=== PATIENT | female | born 1985 | race Caucasian/White ===

== ENCOUNTER 2017-01-20 22:51 | Emergency (ER) | payer OTHER ==
[2017-01-20 23:09] VITALS: BP 107/67
[2017-01-20] MEDS ORDERED: oxyCODONE/Acetamin 5/325 MG* TAB PO ONE (23:29)
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
[2017-01-21] MEDS ORDERED: oxyCODONE/Acetamin 5/325 MG* TAB PO ONE (00:48)
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
== END 2017-01-21 01:07 | disposition home or self-care (01) ==
LOC: ED 22:51
DX: S82.61XA Displaced fracture of lateral malleolus of right fibula, initial encounter for closed fracture (principal); W19.XXXA Unspecified fall, initial encounter; Y93.9 Activity, unspecified; Y92.9 Unspecified place or not applicable
CPT/HCPCS: 99282; A9270-GY

== ENCOUNTER 2017-03-08 10:23 | Day surgery (SDC) | payer OTHER ==
[~2017-03-08 10:23] MED LIST: Buffered Lidocaine 0.9% SYRIN* 5 ML/SYR SYRINGE INTRADERM ONE; Dexamethasone IV* 4 MG/ML 1 ML (4 MG) IV SLOW PU ONE; Famotidine IV* 10 MG/ML 2 ML (20 mg) IV ONE
[2017-03-08] MEDS ORDERED: Dexamethasone IV* 4 MG/ML 1 ML (4 MG) ONE (10:42)
[2017-03-08] MEDS ORDERED: Famotidine IV* 10 MG/ML 2 ML (20 mg) ONE (10:42)
[2017-03-08] MEDS ORDERED: Buffered Lidocaine 0.9% SYRIN* 5 ML/SYR SYRINGE ONE (10:42)
[2017-03-08] MEDS ORDERED: ceFAZolin 2 GM PREMIX (*) 2 GM/50 ML BAG IVPB ONE (11:02)
[2017-03-08] MEDS ORDERED: fentaNYL* 50 MCG/ML 5 ML VIAL (250 MCG VIAL) ONE (11:13)
[2017-03-08] MEDS ORDERED: Atracurium* 10 MG/ML 10 ML VIAL ONE (11:13)
[2017-03-08] MEDS ORDERED: Midazolam* 1 MG/ML 5 ML VIAL (5 MG) ONE (11:13)
[2017-03-08] MEDS ORDERED: Ondansetron INJ* 2 MG/ML VIAL ONE ×2 (11:14→15:55)
[2017-03-08] MEDS ORDERED: ROPIVACAINE 5 MG/ML 30 ML BTL (0.5%) ONE (11:14)
[2017-03-08] MEDS ORDERED: Ketorolac INJ* 30 MG/ML 1 ML VIAL ONE (11:14)
[2017-03-08] MEDS ORDERED: Propofol* 10 MG/ML 20 ML BTL IV PUSH ONE (11:14)
[2017-03-08] MEDS ORDERED: Bupivacaine 0.5% SDV PF* 30 ML VIAL ONE (13:09)
[2017-03-08] MEDS ORDERED: Scopolamine 1.5 mg* PATCH TRANSDERM PRN (14:21)
[2017-03-08] MEDS ORDERED: fentaNYL* 50 MCG/ML 2 ML VIAL (100 MCG VIAL) IV PRN (14:21)
[2017-03-08] MEDS ORDERED: oxyCODONE/Acetamin 5/325 MG* TAB PO PRN (14:21)
[2017-03-08] MEDS ORDERED: DiMENhydriNATE IV* 50 MG/ML VIAL IV PUSH PRN (14:21)
[2017-03-08] MEDS ORDERED: Ondansetron INJ* 2 MG/ML VIAL IV PRN (14:21)
[2017-03-08] MEDS ORDERED: HYDROmorphone INJ* 1 MG/ML CARPUJECT SYRINGE ONE (15:49)
[2017-03-08] MEDS: HYDROmorphone INJ* 1 MG/ML CARPUJECT SYRINGE IV PRN ×5 (15:52→16:36)
[2017-03-08] MEDS ORDERED: Scopolamine 1.5 mg* PATCH ONE (15:56)
[2017-03-08] MEDS ORDERED: DiMENhydriNATE IV* 50 MG/ML VIAL ONE (15:56)
[2017-03-08 16:37] VITALS: BP 123/70
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
[2017-03-11] MEDS ORDERED: Scopolamine PATCH Remove* 1 NOTE MISC PATCH OFF ONE (14:22)
--- NOTE | 2017-03-16 11:38 | RAD ---
INDICATION: Right foot, right foot injury and pain COMPARISONS: MRI dated March 01, 2017 TECHNIQUE: Fluoroscopy was provided for a surgical procedure. Total fluoroscopy time is: 2 minutes, 33 seconds FINDINGS: Spot images demonstrate internal fixation of the medial midfoot IMPRESSION: FLUOROSCOPY WAS PROVIDED FOR A SURGICAL PROCEDURE CPT II Codes: 6045F
== END 2017-03-08 16:57 | disposition home or self-care (01) ==
LOC: OR 10:23
PROVIDERS: ATTEND Orthopaedic Surgery
DX: S93.324A Dislocation of tarsometatarsal joint of right foot, initial encounter (principal); M25.374 Other instability, right foot; W03.XXXA Other fall on same level due to collision with another person, initial encounter; Y92.9 Unspecified place or not applicable; F17.210 Nicotine dependence, cigarettes, uncomplicated; E03.9 Hypothyroidism, unspecified
CPT/HCPCS: 76000; A9270-GY; C1713; C1776; J0690; J1100; J1170; J1240; J1885; J2250; J2405; J2704; J2795; J3010

== ENCOUNTER 2017-07-26 06:44 | Day surgery (SDC) | payer OTHER ==
[2017-07-26] MEDS ORDERED: Dexamethasone IV* 4 MG/ML 1 ML (4 MG) ONE (07:04)
[2017-07-26] MEDS ORDERED: Famotidine IV* 10 MG/ML 2 ML (20 mg) ONE (07:04)
[2017-07-26] MEDS ORDERED: Buffered Lidocaine 0.9% SYRIN* 5 ML/SYR SYRINGE ONE (07:05)
[2017-07-26] MEDS ORDERED: ceFAZolin 2 GM PREMIX (*) 2 GM/50 ML BAG IVPB ONE (07:05)
[2017-07-26] MEDS ORDERED: fentaNYL* 50 MCG/ML 2 ML VIAL (100 MCG VIAL) IV PRN (08:47)
[2017-07-26] MEDS ORDERED: HYDROcodone/ACETAMIN 5-325 MG* 1 TAB PO PRN (08:47)
[2017-07-26] MEDS ORDERED: PROCHLORPERAZINE INJ 5 MG/ML 2 ML VIAL IV PRN (08:47)
[2017-07-26] MEDS ORDERED: oxyCODONE/Acetamin 5/325 MG* TAB PO PRN (08:47)
[2017-07-26] MEDS ORDERED: Naloxone* 0.4 MG/ML 1 ML VIAL IV PRN (08:47)
[2017-07-26] MEDS ORDERED: Scopolamine 1.5 mg* PATCH ONE (08:54)
[2017-07-26] MEDS ORDERED: Midazolam* 1 MG/ML 2 ML VIAL (2 MG) ONE (08:55)
[2017-07-26] MEDS ORDERED: Propofol* 10 MG/ML 20 ML BTL IV PUSH ONE (08:55)
[2017-07-26] MEDS ORDERED: KETAMINE HCL* 50 MG/ML 10 ML VIAL ONE (08:55)
[2017-07-26] MEDS ORDERED: fentaNYL* 50 MCG/ML 2 ML VIAL (100 MCG VIAL) ONE ×2 (08:55→10:16)
[2017-07-26] MEDS ORDERED: Lidocaine 2% PF * 5 ML VIAL ONE (08:55)
[2017-07-26] MEDS ORDERED: Scopolamine PATCH Remove* 1 NOTE MISC PATCH OFF SCH (09:00)
[2017-07-26] MEDS ORDERED: Scopolamine 1.5 mg* PATCH TRANSDERM SCH (09:00)
[2017-07-26] MEDS ORDERED: Ketorolac INJ* 30 MG/ML 1 ML VIAL ONE (09:12)
[2017-07-26] MEDS ORDERED: Ondansetron INJ* 2 MG/ML VIAL ONE (09:36)
--- NOTE | 2017-07-26 10:19 | OP ---
Operative Report - Blank - Operative Report Date of Operation: 07/26/17 Note: PATIENT: Maribel Zendejas DATE OF : 83 DATE OF SURGERY: 07/26/17 SURGEON: Darwin Rodas MD INSPECTOR RETURNED MATERIALS: MYA Cadena, who's assistance was necessary for positioning, retraction, help with instrumentation, and closure. ANESTHESIOLOGIST: Juan Alberto Sanders MD PREOPERATIVE DIAGNOSIS: Right foot painful retained hardware POSTOPERATIVE DIAGNOSIS: Right foot painful retained hardware OPERATION: 1. Right foot, removal of implants, deep. 2. Stress fluoroscopy performed by surgeon under anesthesia. ANESTHESIA: GETA IMPLANTS: Synthes mini-frag plate and screws and 4.0 mm cannulated screws removed. TOURNIQUET TIME: Less than 1 hour with an ankle Esmarch tourniquet SPECIMENS: none ESTIMATED BLOOD LOSS: minimal COMPLICATIONS: none STATUS: Stable from the operating room to the recovery room and then home. INDICATIONS FOR PROCEDURE: Maribel previously underwent a right Lisfranc ORIF. Both operative and non operative treatment alternatives were reviewed. Further, the nature and risks of surgery were reviewed in careful detail, in the office as well as the pre- operative holding area. Our discussions regarding the risks of surgery included , but were not limited to, infection, wound problems, nerve injury, neuroma, RSD , persistent symptoms, blood clot, need for further surgery, post-traumatic arthritis, failure of the surgery, and even the remote chance of catastrophic complication, including loss of limb. DESCRIPTION OF PROCEDURE: The patient was seen in the preoperative holding unit and informed written consent was obtained. The appropriate extremity was marked. The patient was then brought to the operating room and carefully positioned on the operating room table. Anesthesia was induced. All bony prominences were padded with great care. A chlorhexidine based pre-scrub was performed followed by a chloraprep prep and drape in standard sterile fashion. A surgical safety pause was then conducted in which we confirmed the appropriate patient, extremity, planned procedure, availability of equipment, indication and administration of prophylactic antibiotics, and DVT prophylaxis in the form of a compression boot on the non-surgical extremity. We began by placing an ankle Esmarch tourniquet. I utilized the prior dorsal foot incision to access the medial column hardware. I used blunt dissection to expose the hardware and took great care not to disturb the neurovascular bundle. The hardware was exposed and a screw moving van driver was used to remove the screws. A freer was used to loosen the plate which was then removed. A rongeur was used to smooth out the bone. I then turned my attention to the percutaneous screw. I utilized a small K wire to cannulate the cannulated screw. I dissected down to expose the hardware. We removed the screw utilizing a screwdriver without difficulty. I then performed an external rotation and abduction stress fluoroscopic examination. No instability was appreciated at the Lisfranc articulation. A fluoroscopic image was obtained demonstrating removal of hardware. At this point, we irrigated copiously and then closed in layers meticulously utilizing 3-0 Monocryl and 3-0 nylon for the skin. A sterile dressing was then applied. The patient was then awakened from anesthesia and transferred to the recovery room in stable condition. There were no complications. All needle and sponge counts were correct at the end of the case. ATTESTATION: I attest I was present and scrubbed and performed the critical portions of the procedure myself. POSTOPERATIVE PLAN: The plan is to remove the sutures in 2 weeks.
[2017-07-26] MEDS ORDERED: oxyCODONE TAB* 5 MG TAB ONE (10:43)
[2017-07-26 11:09] VITALS: BP 112/75
--- NOTE | 2017-07-27 07:11 | RAD ---
INDICATION: Right foot removal of hardware. COMPARISON: Comparison is made with prior x-ray study of the right foot from June 19, 2017. TECHNIQUE: 15 seconds of intermittent fluoroscopic guidance were provided and 3 spot films of the right foot were obtained in the operating room. FINDINGS: The films demonstrate interval removal of the metallic plate and surgical screws in the medial midfoot. IMPRESSION: INTRAOPERATIVE CONTROL FILMS. CPT II Codes: 6045F
== END 2017-07-26 11:10 | disposition home or self-care (01) ==
LOC: OR 06:44
PROVIDERS: ATTEND Orthopaedic Surgery
DX: T84.84XA Pain due to internal orthopedic prosthetic devices, implants and grafts, initial encounter (principal); S93.324D Dislocation of tarsometatarsal joint of right foot, subsequent encounter; S93.601D Unspecified sprain of right foot, subsequent encounter; S93.431D Sprain of tibiofibular ligament of right ankle, subsequent encounter; X58.XXXD Exposure to other specified factors, subsequent encounter; E03.9 Hypothyroidism, unspecified; F17.210 Nicotine dependence, cigarettes, uncomplicated
CPT/HCPCS: 76000; 88300; A9270-GY; C1776; J0690; J1100; J1885; J2250; J2405; J2704; J3010

== ENCOUNTER 2017-08-03 07:03 | Emergency (ER) | payer OTHER ==
--- NOTE | 2017-08-03 07:19 | UC ---
Respiratory Complaint HPI - HPI Summary HPI Summary: 32 yo female is about 8 days s/p surgery on right foot (removal of hardware). Hasn't been out of bed except much until today past few days has had a cough associated with dyspnea and profuse diarphoresis with minimal activity. possible low grade temp. No CP - History of Current Complaint Chief Complaint: UCRespiratory Stated Complaint: COUGH Time Seen by Provider: 08/03/17 07:18 Hx Last Menstrual Period: 07/13/17 Onset/Duration: Gradual Onset, Lasting Days Timing: Constant Severity Initially: Mild Severity Currently: Moderate Pain Intensity: 0 Pain Scale Used: 0-10 Numeric Character: Cough: Productive - scant sputum Aggravating Factors: Nothing Alleviating Factors: Nothing Associated Signs And Symptoms: Positive: Dyspnea - Risk Factors Pulmonary Embolism Risk Factors: Recent Bedrest, Recent Surgery - Allergies/Home Medications Allergies/Adverse Reactions: Allergies Allergy/AdvReac Type Severity Reaction Status Date / Time codeine Allergy Itching Verified 08/03/17 07:09 PMH/Surg Hx/FS Hx/Imm Hx Previously Healthy: Yes - Surgical History Surgical History: Yes Surgery Procedure, Year, and Place: c section x 2 - [place] 2005; [place] 2009. cholecystectomy 2001 [place]. gall bladder duct stent removed 2007- [facility]. TUBAL LIGATION,OVARY AND FALLOPIAN TUBE REMOVED 2015 [place]. right foot [place] - [place] [facility] [place] Right ankle hardware removal 2018 - Family History Known Family History: Positive: Hypertension, Other - mother FMH ear infections as adult - Social History Alcohol Use: Occasionally Substance Use Type: None Smoking Status (MU): Light Every Day Tobacco Smoker Type: Cigarettes Amount Used/How Often: 1/2 ppd for 10 yrs Length of Time of Smoking/Using Tobacco: on/off 12 yrs Have You Smoked in the Last Year: Yes When Did the Patient Quit Smoking/Using Tobacco: Mar 2013 - Immunization History Most Recent Influenza Vaccination: 2012 Review of Systems Constitutional: Negative Skin: Negative Eyes: Negative ENT: Negative Respiratory: Shortness Of Breath, Cough Cardiovascular: Negative Gastrointestinal: Negative Genitourinary: Negative Motor: Negative Neurovascular: Negative Musculoskeletal: Other: - varicosities left LE no calf pain or swelling Neurological: Negative Psychological: Negative Is Patient Immunocompromised?: No All Other Systems Reviewed And Are Negative: Yes Physical Exam Triage Information Reviewed: Yes Appearance: Well-Appearing, No Pain Distress, Well-Nourished Vital Signs: Initial Vital Signs Temp 98.3 F 08/03/17 07:07 Pulse 89 08/03/17 07:07 Resp 17 08/03/17 07:07 BP 117/67 08/03/17 07:07 Pulse Ox 99 08/03/17 07:07 Vital Signs Reviewed: Yes Eyes: Positive: Conjunctiva Clear ENT: Positive: Hearing grossly normal. Negative: Nasal congestion, Nasal drainage, Dental tenderness, Sinus tenderness Neck: Positive: Supple, Nontender, No Lymphadenopathy Respiratory: Positive: Lungs clear, Normal breath sounds, No respiratory distress, No accessory muscle use Cardiovascular: Positive: RRR, No Murmur Musculoskeletal: Positive: No Edema, Other: - right foot in anabel wrap and post op shoe Neurological Exam: Normal Psychological Exam: Normal Skin Exam: Normal UC Diagnostic Evaluation - Laboratory O2 Sat by Pulse Oximetry: 99 - normal/not hypoxic - Radiology Xray Interpretation: Positive (See Comments) - 1. NO PULMONARY ARTERIAL FILLING DEFECT TO SUGGEST PULMONARY EMBOLISM. Radiology Interpretation Completed By: Radiologist Re-Evaluation - Re-Evaluation First Eval Re-Evaluation Time: 10:08 Change: Improved - subjectively improved Respiratory Course/Dx - Differential Dx/Diagnosis Provider Diagnoses: pneumonia Discharge - Sign-Out/Discharge Documenting (check all that apply): Discharge - Discharge Plan Condition: Stable Disposition: HOME Prescriptions: Amoxicillin/Clavulanate TAB* [Augmentin TAB 875*] 875 mg PO BID #14 tab Fluconazole 150 MG (NF) [Diflucan 150 mg (NF)] 150 mg PO ONCE #1 tab Patient Education Materials: Pneumonia (ED) Referrals: Rohini Perez PA [Primary Care Provider] - 5 Days Additional Instructions: recheck for new or worsening symptoms use inhaler as directed robitussin or mucinex - Billing Disposition and Condition Condition: STABLE Disposition: HOME
[2017-08-03] MEDS ORDERED: Iohexol 350* (CONTRAST) 500 ML MDV IV ONE (08:38)
--- NOTE | 2017-08-03 09:15 | RAD ---
HISTORY: Shortness of breath, status post surgery COMPARISONS: None TECHNIQUE: Multiple contiguous axial CT scans of the chest were obtained after the administration of nonionic intravenous contrast, timed to the pulmonary arterial phase of contrast enhancement.. Coronal and sagittal multiplanar reformations are also submitted for review. FINDINGS: NECK AND THYROID: The lower neck and thyroid are unremarkable. CHEST WALL: There is no lower cervical, axillary, or supraclavicular lymphadenopathy by size criteria. HEART AND PERICARDIUM: The heart is unremarkable. AORTA AND PULMONARY VASCULATURE: There is no pulmonary arterial filling defect to suggest pulmonary embolism. There is no linear filling defect within the aorta to suggest aortic dissection. MEDIASTINUM: There is no mediastinal lymphadenopathy by size criteria. ELIZABETH: There is no hilar lymphadenopathy by size criteria. AIRWAY AND ESOPHAGUS: The airway is unremarkable, without endobronchial filling defect. The esophagus is grossly normal. LUNG PARENCHYMA: There is patchy groundglass opacification of the left lower lobe. PLEURA: No pleural abnormalities are noted. UPPER ABDOMEN: The upper abdomen is unremarkable. BONES AND SOFT TISSUES: No bone or soft tissue abnormalities are noted. OTHER: None. IMPRESSION: 1. NO PULMONARY ARTERIAL FILLING DEFECT TO SUGGEST PULMONARY EMBOLISM. 2. THERE IS MINIMAL AIRSPACE DISEASE OF THE LEFT LOWER LOBE.
[2017-08-03] MEDS ORDERED: Albuterol 2.5 MG/3 ML NEB.SOL* (0.083%) INH ONE (09:38)
[2017-08-03] MEDS ORDERED: Amoxicillin/Clavulanate TAB* 875 MG PO ONE (09:38)
[2017-08-03] MEDS ORDERED: Ipratropium 0.5MG/2.5ML NEB* 0.5 MG/2.5 ML NEB.SOLN INH ONE (09:38)
[2017-08-03] MEDS ORDERED: Albuterol HFA INHALER* 8 gm MDI INH ONE (10:07)
[2017-08-03 10:29] VITALS: BP 135/63
== END 2017-08-03 10:36 | disposition home or self-care (01) ==
LOC: UCCORT 07:03
DX: J18.9 Pneumonia, unspecified organism (principal); Z98.890 Other specified postprocedural states; F17.210 Nicotine dependence, cigarettes, uncomplicated; Z88.5 Allergy status to narcotic agent
CPT/HCPCS: 71275; 99213; A9270-GY; G0463; Q9967

== ENCOUNTER 2019-01-18 07:20 | Emergency (ER) | payer OTHER ==
--- OUTSIDE RECORDS SUMMARY | 2019-01-18 07:26 | XMS REPORT | Continuity of Care Document ---
:1985 External Reference #:[id number] Author Name MYA Estes (transmitted by agent of provider Braeden Vincent) Address [address] [place] [id number] Care Team Providers Name Role Phone Luis Manuel Vigil MD - Internal Care Team Information Director Of Agronomy [phone] Medicine Chance Bean MD - Otolaryngology Care Team Information Director Of Agronomy Errol Koroma MD, PhD - Care Team Information Director Of Agronomy [phone] Neurology Darci Lawrence MD - Orthopaedic Care Team Information Director Of Agronomy Surgery Darwin Rodas MD - Orthopaedic Care Team Information Director Of Agronomy Surgery Vascular, Cardiac & Thoracic Surgeons Care Team Information Director Of Agronomy [phone] Problems Active Problems Provider Date Obesity Onset: 04/08/2018 Otalgia Onset: 04/08/2018 Varicose veins of lower extremity Onset: 04/08/2018 Tobacco user Onset: 04/08/2018 Dizziness and giddiness Onset: 04/08/2018 Closed fracture dislocation of tarsometatarsal joint Onset: 04/08/2018 Hypothyroidism Onset: 04/08/2018 Acute lymphadenitis Onset: 04/08/2018 Multiple joint pain Onset: 05/30/2013 Gynecologic examination Onset: 05/30/2013 Needs influenza immunization Onset: 05/30/2013 Herpes simplex MYA Estes Onset: 09/03/2018 Social History Type Date Description Comments Sex Unknown ETOH Use Occasionally consumes alcohol Tobacco Use Start: Unknown Light tobacco smoker (10 or fewer cigarettes/day) Recreational Drug Use Never Used Drugs Tobacco Use Start: Unknown smoke free for 30 days Tobacco Use Start: Unknown pt has quit smoking for 2 months Smoking Status Reviewed: 12/24/18 pt has quit smoking for 2 months Exercise Type/Frequency Exercises sporadically Allergies, Adverse Reactions, Alerts Active Allergies Reaction Severity Comments Date Codeine 05/10/2018 Medications Active Medications SIG Qnty Indications Ordering Date Provider Famciclovir 3 tablets at once 6tabs B00.89 [place] 09/03/2018 500mg Tablets at onset of cold MD Rosa sores Phentermine HCL one daily before 30caps E66.9 [place] 09/08/2016 37.5mg breakfast as MD Rosa Capsules directed Levothyroxine Sodium Take One Tablet 90tabs E03.9 [place] 07/15/2015 By Mouth Every MD Rosa 25mcg Tablets Day History Medications Nitrofurantoin Monohyd 1 by mouth 20caps R30.0 Israel Lee 2018 - Macro twice a day 10/02/2018 100mg Capsules Fluconazole 1 by mouth 2tabs N76.0 Israel Lee 09/20/2018 - 150mg Tablets every day 10/02/2018 Azithromycin 2 pills on 6tabs J01.90 Israel Lee 07/31/2018 - 250mg day one and 09/03/2018 Tablets then one pill daily Immunizations CPT Code Status Date Vaccine Lot # [id number] Given 05/27/2013 Influenza Virus 3Yrs & Over 24246 Given 03/06/2012 Influenza Virus 3Yrs & Over 24234 Given 06/14/1999 Tetanus Toxoid Adsorbed, For Intramuscular Use 05558 Given 12/20/1985 Poliovirus Vaccine OPV Live Oral Use 89153 Given 12/20/1985 DTP Vaccine 50436 Given 09/13/1985 Measles Mumps And Rubella MMR 28052 Given 1984 DTP Vaccine 97853 Given 1984 Poliovirus Vaccine OPV Live Oral Use 42275 Given 1984 DTP Vaccine 68454 Given 1984 Poliovirus Vaccine OPV Live Oral Use 99405 Given 1984 DTP Vaccine Vital Signs Date Vital Result Comment 12/24/2018 4:20pm Weight 213.25 lb BP Systolic Sitting 110 mmHg BP Diastolic Sitting 50 mmHg 11/28/2018 4:13pm Weight 214.56 lb BP Systolic Sitting 112 mmHg BP Diastolic Sitting 60 mmHg Results Test Date Facility Test Result H/L Range Note Ua Routine 09/20/2018 [facility] In House Ua Specific [place] 1.005 Ua PH 6.0 Ua Color yellow Ua Appera cloudy Ua WBC 3+ Ua Protein neg Ua Glucose neg Ua Ketones pos Ua Bilirubin neg Ua Urobilinogen neg Ua Nitrite pos Ua Occult Blood neg Procedures Description No Information Available Medical Devices Description No Information Available Encounters Type Date Location Provider Dx Diagnosis Office Visit 11/28/2018 4:00p [facility] MYA Estes E66.8 Other obesity Office Visit 10/29/2018 4:00p [facility] MYA Estes E66.8 Other obesity N93.8 Other specified abnormal uterine and vaginal bleeding Office Visit 10/02/2018 3:30p [facility] Primary MYA Estes J06.9 Acute upper Care respiratory infection, unspecified E66.8 Other obesity Office Visit 09/20/2018 10:00a [facility] MYA Estes R30.0 Dysuria N76.0 Acute vaginitis Office Visit 09/03/2018 4:15p [facility] MYA Estes E66.8 Other obesity Z72.0 Tobacco use J06.9 Acute upper respiratory infection, unspecified B00.89 Other herpesviral infection Office Visit 07/31/2018 4:30p [facility] Primary MYA Estes J06.9 Acute upper Care respiratory infection, unspecified J01.90 Acute sinusitis, unspecified E66.8 Other obesity Assessments Date Code Description Provider 12/24/2018 E66.8 Other obesity MYA Estes 11/28/2018 E66.8 Other obesity MYA Estes 10/29/2018 E66.8 Other obesity MYA Estes 10/29/2018 N93.8 Other specified abnormal uterine and vaginal bleeding MYA Estes 10/02/2018 J06.9 Acute upper respiratory infection, unspecified MYA Estes 10/02/2018 E66.8 Other obesity MYA Estes 09/20/2018 R30.0 Dysuria MYA Estes 09/20/2018 N76.0 Acute vaginitis MYA Estes 09/03/2018 E66.8 Other obesity MYA Estes 09/03/2018 Z72.0 Tobacco use MYA Estes 09/03/2018 J06.9 Acute upper respiratory infection, unspecified MYA Estes 09/03/2018 B00.89 Other herpesviral infection MYA Estes 07/31/2018 J06.9 Acute upper respiratory infection, unspecified MAY Estes 07/31/2018 J01.90 Acute sinusitis, unspecified MYA Estes 07/31/2018 E66.8 Other obesity MYA Estes Plan of Treatment Future Appointment(s):01/27/2019 4:15 pm - MYA Estes at [facility] - ARIELLE Estes66.8 Other obesity Functional Status Functional Condition Comment Date Status Soft Contacts Active Mental Status Description No Information Available Referrals Description No Information Available
[2019-01-18 07:32] VITALS: BP 134/66
--- NOTE | 2019-01-18 08:08 | UC ---
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 Pt states it is a dry cough and yesterday was short of breath upon exertion. " -had sick contacts at that time. -no fevers/chills -no ST/ear pain. + wheezing. no asthma. no Fhx asthma except from dtr (comes from husbands side) - History of Current Complaint Chief Complaint: UCGeneralIllness Stated Complaint: COUGH Time Seen by Provider: 01/18/19 07:35 Hx Last Menstrual Period: 12/23/18 Pain Intensity: 0 - Allergies/Home Medications Allergies/Adverse Reactions: Allergies Allergy/AdvReac Type Severity Reaction Status Date / Time codeine Allergy Itching Verified 01/18/19 07:32 PMH/Surg Hx/FS Hx/Imm Hx Previously Healthy: Yes Endocrine History: Thyroid Disease - Surgical History Surgical History: Yes Surgery Procedure, Year, and Place: c section x 2 - [place] 2005; [place] 2009. cholecystectomy 2001 [place]. gall bladder duct stent removed 2007- [facility]. TUBAL LIGATION,OVARY AND FALLOPIAN TUBE REMOVED 2015 [place]. right foot orif - 2016 [facility] [place]. Right ankle hardware removal 2017 - Family History Known Family History: Positive: Hypertension, Other - mother FMH ear infections as adult Negative: Respiratory Disease - no asthma - Social History Alcohol Use: Occasionally Substance Use Type: None Smoking Status (MU): Light Every Day Tobacco Smoker Type: Cigarettes Amount Used/How Often: 1/2 ppd for 10 yrs Length of Time of Smoking/Using Tobacco: on/off 12 yrs Have You Smoked in the Last Year: Yes When Did the Patient Quit Smoking/Using Tobacco: 07/2018 - Immunization History Most Recent Influenza Vaccination: 2012 Review of Systems All Other Systems Reviewed And Are Negative: Yes Constitutional: Positive: Fatigue. Negative: Fever, Chills Skin: Positive: Negative. Negative: Rash Eyes: Positive: Negative ENT: Positive: Negative. Negative: Ear Ache, Nasal Discharge, Sinus Congestion , Sinus Pain/Tenderness Respiratory: Positive: Shortness Of Breath - w/ signifcant cough. Negative: Cough Cardiovascular: Positive: Negative. Negative: Palpitations, Chest Pain Gastrointestinal: Positive: Negative. Negative: Vomiting, Nausea Genitourinary: Positive: Negative. Negative: Dysuria Motor: Positive: Negative Neurovascular: Positive: Negative Musculoskeletal: Positive: Negative Neurological: Positive: Negative Psychological: Positive: Negative Is Patient Immunocompromised?: No Physical Exam Triage Information Reviewed: Yes Appearance: Well-Appearing, No Pain Distress, Well-Nourished - mod cough, gets into coughing fits Vital Signs: Initial Vital Signs Temp 98.2 F 01/18/19 07:28 Pulse 80 01/18/19 07:28 Resp 16 01/18/19 07:28 BP 134/66 01/18/19 07:28 Pulse Ox 98 01/18/19 07:28 Vital Signs Reviewed: Yes Eye Exam: Normal Eyes: Positive: Conjunctiva Clear ENT Exam: Normal ENT: Positive: Pharynx normal, TMs normal, Uvula midline. Negative: Nasal congestion, Nasal drainage, TM bulging, TM dull, TM red, Sinus tenderness Dental Exam: Normal Neck exam: Normal Neck: Positive: Supple, Nontender, No Lymphadenopathy Respiratory: Positive: No respiratory distress, Decreased breath sounds. Negative: No accessory muscle use, Respiratory distress, Crackles, Rhonchi, Stridor, Wheezing Cardiovascular Exam: Normal Cardiovascular: Positive: RRR Abdomen Description: Positive: Nontender, Soft Musculoskeletal Exam: Normal Neurological Exam: Normal Psychological Exam: Normal Skin Exam: Normal Re-Evaluation - Re-Evaluation First Eval Re-Evaluation Time: 08:30 Change: Improved - improved breath sounds. no w/r/r. feels much better. can take deep breaths now w/o being SOB Respiratory Course/Dx - Course Course Of Treatment: Albuterol neb with good improvement. she has nebulizer at home for her kids that she would like to use. -explained medication side effects - Differential Dx/Diagnosis Differential Diagnosis/HQI/PQRI: Asthma, Bronchitis Provider Diagnosis: Bronchitis Discharge ED - Sign-Out/Discharge Documenting (check all that apply): Patient Departure All imaging exams completed and their final reports reviewed: No Studies - Discharge Plan Condition: Stable Disposition: HOME Prescriptions: Albuterol 2.5MG/3ML (0.083%)* [Ventolin 2.5 MG/3 ML NEB.ANNE*] 2.5 mg INH Q4H #1 neb.anne Albuterol HFA INHALER* [Ventolin HFA Inhaler*] 2 puff INH Q4H PRN 14 Days #1 mdi PRN Reason: Cough methylPREDNISolone [Medrol Dosepak 4 MG*] 4 mg PO DAILY #1 jory Patient Education Materials: Acute Bronchitis (ED) Referrals: Rohini Perez PA [Primary Care Provider] - 5 Days Additional Instructions: Make sure to increase fluids and rest. -Use the albuterol every 4-6 hrs for cough and shortness of breath -You should follow up sooner if your symptoms increase or persist. or if you develop fevers/chills/worsening shortness of breath. --We talked about the potential side effects of prednisone including but not limited too increased energy/decreased sleep, stomach upset, irritability, hunger, elevated blood sugars and blood pressures, problems with your adrenal glands and cut off of the blood supply going to your hip. The latter symptoms are more typical of oil heaterman or frequent use of steroids. - Billing Disposition and Condition Condition: STABLE Disposition: Home
[2019-01-18] MEDS ORDERED: Albuterol 2.5 MG/3 ML NEB.SOL* (0.083%) INH ONE (08:09)
== END 2019-01-18 08:50 | disposition home or self-care (01) ==
LOC: UCCORT 07:20
DX: J40 Bronchitis, not specified as acute or chronic (principal); Z88.5 Allergy status to narcotic agent; F17.210 Nicotine dependence, cigarettes, uncomplicated
CPT/HCPCS: 99212; G0463

== ENCOUNTER 2020-05-25 10:21 | Inpatient (IN) ==
[~2020-05-25 10:21] MED LIST changes: -Buffered Lidocaine 0.9% SYRIN* 5 ML/SYR SYRINGE INTRADERM ONE; +Buffered Lidocaine 1% SYRIN 1 ml INTRADERM ONE; -Dexamethasone IV* 4 MG/ML 1 ML (4 MG) IV SLOW PU ONE; -Famotidine IV* 10 MG/ML 2 ML (20 mg) IV ONE; +Lactated Ringers 1000 ml BAG 1,000 ML IV SCH
[2020-05-25] MEDS ORDERED: ceFAZolin 1 GM ADVAN 1 GM ADDV.VIAL IVPB ONE (10:40)
[2020-05-25] MEDS ORDERED: Buffered Lidocaine 1% SYRIN 1 ml INTRADERM ONE (10:40)
[2020-05-25] MEDS ORDERED: ceFAZolin 2 GM PREMIX 2 GM/50 ML BAG ONE (10:40)
[2020-05-25] MEDS ORDERED: Heparin 5000 UNITS/ML 1 mL VIAL ONE (10:56)
[2020-05-25] MEDS ORDERED: Bupivacaine 0.25% SDV 30 ML ONE (11:46)
[2020-05-25] MEDS ORDERED: Rocuronium 50 mg VIAL 10 mg/ml 5 ml VIAL (50 mg) ONE ×2 (12:04→12:56)
[2020-05-25] MEDS ORDERED: Propofol 10 MG/ML 20 ML BTL ONE (12:04)
[2020-05-25] MEDS ORDERED: fentaNYL 100 mcg/2 ml 50 MCG/ML VIAL ONE ×2 (12:04→15:08)
[2020-05-25] MEDS ORDERED: Midazolam 2 mg/2 ml VIAL 1 mg/ml 2 ml VIAL (2 mg) ONE (12:04)
[2020-05-25] MEDS ORDERED: Lidocaine 2% PF 5 ML VIAL ONE (12:04)
[2020-05-25] MEDS ORDERED: Neostigmine Methylsulfate 3 MG/3 ML SYRINGE ONE (12:44)
[2020-05-25] MEDS ORDERED: Metoclopramide 5 MG/ML VIAL (10 mg) ONE (12:44)
[2020-05-25] MEDS ORDERED: Ondansetron 4 mg VIAL 2 MG/ML 2 ml VIAL ONE ×2 (12:44→15:30)
[2020-05-25] MEDS ORDERED: Glycopyrrolate IV 0.2 MG/ML 1 ML VIAL ONE (12:44)
[2020-05-25] MEDS ORDERED: Dexamethasone IV 4 MG/ML VIAL 1 ml VIAL ONE (12:44)
[2020-05-25] MEDS ORDERED: HYDROmorphone 1 MG/1 ML SYRINGE ONE ×2 (13:06→15:08)
[2020-05-25] MEDS ORDERED: Ondansetron 4 mg VIAL 2 MG/ML 2 ml VIAL IV PRN ×2 (13:18→14:55)
[2020-05-25] MEDS ORDERED: Naloxone 0.4 mg VIAL 0.4 mg/ml 1 ml VIAL IV PRN (13:18)
[2020-05-25] MEDS ORDERED: Acetaminophen IV 1 GM/100ML 1,000 MG/100 ML VIAL IVPB ONE (13:18)
[2020-05-25] MEDS ORDERED: DiMENhydriNATE IV 50 mg/ml 1 ml VIAL IV PUSH PRN (13:18)
[2020-05-25] MEDS ORDERED: diPHENhydraMINE IV 50 MG/ML 1 ml VIAL (BENADRYL) SLOW PUSH PRN (14:55)
[2020-05-25] MEDS ORDERED: Acetaminophen IV 1 GM/100ML 100 ML ONE (15:08)
[2020-05-25] MEDS: fentaNYL 100 mcg/2 ml 50 MCG/ML VIAL IV PRN ×2 (15:10→15:27)
[2020-05-25] MEDS: HYDROmorphone 1 MG/1 ML SYRINGE IV PRN ×2 (15:11→15:26)
[2020-05-25] MEDS ORDERED: DiMENhydriNATE IV 50 mg/ml 1 ml VIAL ONE (15:31)
[2020-05-25] MEDS ORDERED: HYDROmorphone 0.5 MG/0.5 ML SYRINGE ONE (16:11)
[2020-05-25] MEDS: Lactated Ringers 1000 ml BAG 1,000 ML IV SCH (16:15)
[2020-05-25] MEDS: HYDROmorphone 0.5 MG/0.5 ML SYRINGE IV SLOW PU PRN ×2 (16:15→20:09)
[2020-05-25] MEDS ORDERED: Famotidine IV 10 MG/ML 2 ml VIAL (20 mg) IV SLOW PU SCH (21:00)
[2020-05-25] MEDS: Heparin 5000 UNITS/ML 1 mL VIAL SUBCUT SCH (21:45)
[2020-05-26] MEDS: HYDROmorphone 0.5 MG/0.5 ML SYRINGE IV SLOW PU PRN ×2 (00:06→05:13)
[2020-05-26] MEDS: Lactated Ringers 1000 ml BAG 1,000 ML IV SCH ×2 (00:06→09:35)
[2020-05-26] MEDS: Heparin 5000 UNITS/ML 1 mL VIAL SUBCUT SCH ×2 (05:13→14:57)
[2020-05-26] MEDS ORDERED: Pantoprazole VIAL 40 MG VIAL IV SCH (09:00)
[2020-05-26] MEDS: HYDROcodone/ACET. 7.5/325 LIQ 15 ML UDC PO PRN ×2 (09:37→14:57)
[2020-05-26] MEDS ORDERED: Famotidine IV 10 MG/ML 2 ml VIAL (20 mg) IV SLOW PU SCH (10:00)
[2020-05-26] MEDS ORDERED: D5W 1/2 NS KCl 20 meq 1000 ml 1,000 ML IV SCH (15:00)
[2020-05-26 16:56] VITALS: BP 111/53
== END 2020-05-26 17:45 | disposition home or self-care (01) | DRG 403 ==
LOC: AA 10:21 → SSU 16:03
PROVIDERS: ADMIT Surgery; ATTEND Surgery